=== PATIENT | female | born 1935 | race Caucasian/White ===

== ENCOUNTER 2019-07-23 11:10 | Emergency (ER) | payer OTHER ==
[~2019-07-23] VITALS: Ht 157.5 cm; Wt 56.7 kg
[2019-07-23 11:10] VITALS: BP_SYST 116
--- NOTE | 2019-07-23 11:10 | NUR ---
ASSISTED OUT OF CAR TO WHEELCHAIR, BROUGHT IMMEDIATELY BACK TO #2 AND TRIAGED. REPORT GIVEN TO NITIN
--- NOTE | 2019-07-23 11:11 | NUR ---
EKG DONE AND GIVEN TO DR MCKAY, ALL STAFF TO BEDSIDE.
--- NOTE | 2019-07-23 11:12 | NUR ---
ER Dr. Kennedy at bedside examining patient.
--- NOTE | 2019-07-23 11:13 | NUR ---
#20 and 18g gauge angiocath placed to LAC and RAC. Use of asceptic technique. Opsite placed over site. Blood return noted. Blood for lab drawn from site. Flushed with 10 cc of normal saline. No evidence of infiltration noted. Patient tolerated well.
--- NOTE | 2019-07-23 11:14 | NUR ---
EKG FAXED TO [facility]
[2019-07-23] MEDS ORDERED: NACL 0.9% 1,000 ML IV ONE (11:16)
--- NOTE | 2019-07-23 11:28 | NUR ---
DR MCKAY SPEAKING WITH DR OLIVA, ACCEPTED TO BE TRANSFERRED TO [facility] FOR HIGHER LEVEL OF CARE.
[2019-07-23] MEDS ORDERED: ASPIRIN 81 MG TAB.CHEW PO ONE ×2 (11:30)
[2019-07-23] MEDS ORDERED: MORPHINE 2 MG/ML INJ. SYRINGE IVP ONE (11:30)
[2019-07-23] MEDS ORDERED: NITROGLYCERIN 0.4 MG TAB.SUBL SL ONE ×2 (11:30→11:37)
--- NOTE | 2019-07-23 11:31 | NUR ---
911 CALLED BY INCREMENT MANAGER HECTOR
--- NOTE | 2019-07-23 11:34 | NUR ---
ER at bedside reassessing the pt patient and speaking with the pt's daughter.
--- NOTE | 2019-07-23 11:40 | NUR ---
[facility] paramedics at transferring pt to the [facility].
--- NOTE | 2019-07-23 11:46 | NUR ---
[facility] transferring pt to [facility]. Transfer consent obtained by the pt's daughter.
--- NOTE | 2019-07-23 11:48 | NUR ---
Patient to be transferred to [facility]. Is being transferred due to higher level of care. Receiving facility has accepting physician and available space. ER physician has signed transfer form. Patient or responsible republican has agreed to transfer and signed form. Patient belongings inventoried and will be sent with patient. Copy of nursing notes, lab reports, EKG, Physicians Orders and X-rays to be sent with patient. Report called to ED locum tenens hospitalist at receiving facility. Receiving physician is . [facility] ambulance service has been called for transfer.
[2019-07-23 11:49] LABS: BASOPHILS % (AUTO) 0.2 % (0.0-2.0); EOSINOPHILS % (AUTO) 0.1 % (0.0-4.0); HEMATOCRIT 43.5 % (36-48); HEMOGLOBIN 14.9 g/dL (12.0-16.0); LYMPHOCYTES # (AUTO) 1.1 K/uL (1.0-5.5); LYMPHOCYTES % (AUTO) 8.9 % (20.5-51.5); MEAN CORPUSCULAR HEMOGLOBIN 31 pg (27-31); MEAN CORPUSCULAR HGB CONC 34 % (32-36); MEAN CORPUSCULAR VOLUME 92 fL (79.0-98.0); MONOCYTES % (AUTO) 8.1 % (1.7-9.3); NEUTROPHILS # (AUTO) 10.3 K/uL (1.8-7.7); NEUTROPHILS % (AUTO) 82.7 % (40.0-70.0); PLATELET COUNT (AUTO) 235 K/uL (130-430); RED BLOOD CELL COUNT(AUTO) 4.75 MIL/uL (4.2-6.2); RED CELL DISTRIBUTION WIDTH 13.7 % (9.0-15.0); WHITE BLOOD COUNT (AUTO) 12.5 K/uL (4.8-10.8)
[2019-07-23 11:55] LABS: ANION GAP 17 (5-15); CALCIUM 9.2 mg/dL (8.4-11.0); CHLORIDE 100 mmol/L (98-107); CREATININE 1.22 mg/dL (0.55-1.30); GLUCOSE 130 mg/dL (70-99); POTASSIUM 3.7 mmol/L (3.5-5.1); SODIUM SERUM 139 mmol/L (136-145); UREA NITROGEN, BLOOD 19 mg/dL (8-21)
[2019-07-23 11:56] VITALS: BP_SYST 142
[2019-07-23 12:08] LABS: ALANINE AMINOTRANSFERASE 46 U/L (12-78); ALBUMIN 3.5 g/dL (3.4-4.8); ASPARTATE AMINOTRANSFERASE 390 U/L (10-37); TOTAL BILIRUBIN 0.8 mg/dL (0.0-1.0)
== END 2019-07-23 11:48 | disposition short-term general hospital (02) ==
LOC: SED 11:10
DX: I21.3 ST elevation (STEMI) myocardial infarction of unspecified site (principal); E07.9 Disorder of thyroid, unspecified; Z90.49 Acquired absence of other specified parts of digestive tract
CPT/HCPCS: 36415; 71045; 80053; 84484; 85025; 93005; 96374; 99285; J2270; J7030

== ENCOUNTER 2021-10-10 21:58 | Inpatient (IN) | payer OTHER, SELFPAY ==
[~2021-10-10] VITALS: Ht 154.9 cm; Wt 56.4 kg
[2021-10-10 22:01] VITALS: BP_SYST 134
[2021-10-10] MEDS ORDERED: fentaNYL CITRATE/PF 100 MCG/2 ML AMP IVP ONE (22:45)
[2021-10-10] MEDS ORDERED: IOHEXOL 350 mgI/mL, 150 ML INFUS..BTL IV ONE (23:22)
[2021-10-10 23:44] LABS: BASOPHILS # (AUTO) 0.1 K/uL (0.0-0.2); BASOPHILS % (AUTO) 1.4 % (0.0-2.0); EOSINOPHILS # (AUTO) 0.1 K/uL (0.0-0.4); EOSINOPHILS % (AUTO) 1.9 % (0.0-4.0); HEMOGLOBIN 11.2 g/dL (12.0-16.0); LYMPHOCYTES # (AUTO) 0.6 K/uL (1.0-5.5); LYMPHOCYTES % (AUTO) 8.9 % (20.5-51.5); MEAN CORPUSCULAR HEMOGLOBIN 30 pg (27-31); MEAN CORPUSCULAR HGB CONC 33 % (32-36); MEAN CORPUSCULAR VOLUME 90 fL (79.0-98.0); MONOCYTES # (AUTO) 0.5 K/uL (0.0-1.0); MONOCYTES % (AUTO) 7.3 % (1.7-9.3); NEUTROPHILS # (AUTO) 5.6 K/uL (1.8-7.7); NEUTROPHILS % (AUTO) 80.5 % (40.0-70.0); PLATELET COUNT (AUTO) 239 K/uL (130-430); RED BLOOD CELL COUNT(AUTO) 3.78 MIL/uL (4.2-6.2); RED CELL DISTRIBUTION WIDTH 15.9 % (9.0-15.0)
[2021-10-10 23:49] LABS: ANION GAP 12 (5-15); CALCIUM 8.9 mg/dL (8.4-11.0); CHLORIDE 96 mmol/L (98-107); CREATININE 1.17 mg/dL (0.55-1.30); GLUCOSE 142 mg/dL (70-99); POTASSIUM 3.3 mmol/L (3.5-5.1); SODIUM SERUM 134 mmol/L (136-145); UREA NITROGEN, BLOOD 40 mg/dL (8-21)
[2021-10-11] VITALS (7 sets, daily range): BP systolic 115–131
[2021-10-11 00:01] LABS: ALANINE AMINOTRANSFERASE 40 U/L (12-78); ASPARTATE AMINOTRANSFERASE 26 U/L (10-37); LIPASE 79 U/L (73-393); TOTAL BILIRUBIN 0.9 mg/dL (0.0-1.0)
[2021-10-11] MEDS ORDERED: HEPARIN 25,000 UNITS/D5W 250ML 250 ML IV ONE (00:45)
[2021-10-11] MEDS ORDERED: HEPARIN SODIUM,PORCINE 5,000 UNITS/ML VIAL IVP ONE (00:45)
[2021-10-11] MEDS ORDERED: FUROSEMIDE 20 MG/2 ML VIAL IVP ONE ×2 (00:45→09:45)
[2021-10-11] MEDS ORDERED: FUROSEMIDE 20 MG/2 ML VIAL ONE (00:56)
[2021-10-11 01:05] LABS: INR 1.1 (0.8-1.2); PROTHROMBIN TIME 11.6 SECS (9.5-12.5)
[2021-10-11] MEDS ORDERED: ASPIRIN 81 MG TAB.CHEW PO ONE (01:30)
[2021-10-11] MEDS ORDERED: ACETAMINOPHEN 325 MG TABLET PO PRN (01:45)
[2021-10-11] MEDS: ALBUTEROL SULFATE 0.083% 2.5 MG/3 ML VIAL.NEB INH PRN ×2 (07:12→18:41)
[2021-10-11] MEDS: ASPIRIN 325 MG TABLET PO SCH (08:48)
[2021-10-11 08:58] LABS: BASOPHILS % (AUTO) 0.5 % (0.0-2.0); EOSINOPHILS % (AUTO) 0.2 % (0.0-4.0); HEMOGLOBIN 11.9 g/dL (12.0-16.0); LYMPHOCYTES # (AUTO) 1.1 K/uL (1.0-5.5); LYMPHOCYTES % (AUTO) 13.3 % (20.5-51.5); MEAN CORPUSCULAR HEMOGLOBIN 30 pg (27-31); MEAN CORPUSCULAR HGB CONC 33 % (32-36); MEAN CORPUSCULAR VOLUME 91 fL (79.0-98.0); MONOCYTES # (AUTO) 0.6 K/uL (0.0-1.0); MONOCYTES % (AUTO) 6.6 % (1.7-9.3); NEUTROPHILS # (AUTO) 6.8 K/uL (1.8-7.7); NEUTROPHILS % (AUTO) 79.4 % (40.0-70.0); PLATELET COUNT (AUTO) 257 K/uL (130-430); RED BLOOD CELL COUNT(AUTO) 3.98 MIL/uL (4.2-6.2); RED CELL DISTRIBUTION WIDTH 15.6 % (9.0-15.0); WHITE BLOOD COUNT (AUTO) 8.5 K/uL (4.8-10.8)
[2021-10-11 09:20] LABS: ALANINE AMINOTRANSFERASE 43 U/L (12-78); ANION GAP 12 (5-15); ASPARTATE AMINOTRANSFERASE 39 U/L (10-37); CALCIUM 8.9 mg/dL (8.4-11.0); CHLORIDE 94 mmol/L (98-107); CREATININE 1.36 mg/dL (0.55-1.30); GLUCOSE 187 mg/dL (70-99); POTASSIUM 3.3 mmol/L (3.5-5.1); SODIUM SERUM 131 mmol/L (136-145); UREA NITROGEN, BLOOD 45 mg/dL (8-21)
[2021-10-11] MEDS ORDERED: CARVEDILOL 3.125 MG TABLET (COREG) PO ONE (09:45)
[2021-10-11] MEDS ORDERED: POTASSIUM CHLORIDE 20 MEQ TAB.PRT.SR PO ONE (09:45)
[2021-10-11] MEDS ORDERED: SACU1TAB4 PO (13:14)
[2021-10-11] MEDS ORDERED: CARV3.1246 PO (13:14)
[2021-10-11] MEDS ORDERED: TICA90TA PO (13:14)
[2021-10-11] MEDS ORDERED: LIP40 PO (13:14)
[2021-10-11] MEDS: NORMAL SALINE 5 ML DISP.SYRIN IVF SCH (22:12)
[2021-10-11] MEDS: POTASSIUM CHLORIDE 20 MEQ TAB.PRT.SR PO SCH (22:12)
[2021-10-11] MEDS: CARVEDILOL 3.125 MG TABLET (COREG) PO SCH (22:13)
[2021-10-11] MEDS: FUROSEMIDE 20 MG/2 ML VIAL IVP SCH (22:14)
[2021-10-12 00:20] VITALS: BP_SYST 102
[2021-10-12] MEDS: NORMAL SALINE 5 ML DISP.SYRIN IVF SCH (05:17)
[2021-10-12 06:24] LABS: BASOPHILS % (AUTO) 0.4 % (0.0-2.0); EOSINOPHILS % (AUTO) 0.3 % (0.0-4.0); HEMATOCRIT 31.1 % (36-48); HEMOGLOBIN 10.4 g/dL (12.0-16.0); LYMPHOCYTES # (AUTO) 1.3 K/uL (1.0-5.5); LYMPHOCYTES % (AUTO) 15.4 % (20.5-51.5); MEAN CORPUSCULAR HEMOGLOBIN 30 pg (27-31); MEAN CORPUSCULAR HGB CONC 33 % (32-36); MEAN CORPUSCULAR VOLUME 90 fL (79.0-98.0); MONOCYTES # (AUTO) 0.8 K/uL (0.0-1.0); MONOCYTES % (AUTO) 9.7 % (1.7-9.3); NEUTROPHILS # (AUTO) 6.1 K/uL (1.8-7.7); NEUTROPHILS % (AUTO) 74.2 % (40.0-70.0); PLATELET COUNT (AUTO) 204 K/uL (130-430); RED BLOOD CELL COUNT(AUTO) 3.44 MIL/uL (4.2-6.2); RED CELL DISTRIBUTION WIDTH 15.8 % (9.0-15.0); WHITE BLOOD COUNT (AUTO) 8.2 K/uL (4.8-10.8)
[2021-10-12 07:53] VITALS: BP_SYST 114
[2021-10-12] MEDS: FUROSEMIDE 20 MG/2 ML VIAL IVP SCH (08:13)
[2021-10-12] MEDS: POTASSIUM CHLORIDE 20 MEQ TAB.PRT.SR PO SCH (08:13)
[2021-10-12] MEDS: CARVEDILOL 3.125 MG TABLET (COREG) PO SCH (08:14)
[2021-10-12] MEDS: ASPIRIN 325 MG TABLET PO SCH (08:15)
[2021-10-12 08:26] LABS: ALANINE AMINOTRANSFERASE 37 U/L (12-78); ALBUMIN 2.7 g/dL (3.4-4.8); ANION GAP 10 (5-15); ASPARTATE AMINOTRANSFERASE 31 U/L (10-37); CALCIUM 8.6 mg/dL (8.4-11.0); CHLORIDE 94 mmol/L (98-107); CREATININE 1.45 mg/dL (0.55-1.30); GLUCOSE 117 mg/dL (70-99); POTASSIUM 3.7 mmol/L (3.5-5.1); SODIUM SERUM 131 mmol/L (136-145); TOTAL BILIRUBIN 0.6 mg/dL (0.0-1.0); UREA NITROGEN, BLOOD 50 mg/dL (8-21)
[2021-10-12] MEDS ORDERED: LOSARTAN POTASSIUM 25 MG TABLET PO SCH (09:00)
[2021-10-12 12:00] VITALS: BP_SYST 134
[2021-10-12 13:48] VITALS: BP_SYST 114
[2021-10-12 16:11] VITALS: BP_SYST 119
== END 2021-10-12 16:45 | disposition hospice, home (50) | DRG 280 ==
LOC: SED 21:58 → STU 10-11 01:44
PROVIDERS: ADMIT Internal Medicine Hospice and Palliative Medicine; ATTEND Internal Medicine Hospice and Palliative Medicine
DX: I11.0 Hypertensive heart disease with heart failure (principal); I21.A1 Myocardial infarction type 2; I50.23 Acute on chronic systolic (congestive) heart failure; I42.0 Dilated cardiomyopathy; E78.00 Pure hypercholesterolemia, unspecified; R53.81 Other malaise; Z20.822 Contact with and (suspected) exposure to COVID-19; F17.200 Nicotine dependence, unspecified, uncomplicated; I73.9 Peripheral vascular disease, unspecified; J44.9 Chronic obstructive pulmonary disease, unspecified; I25.2 Old myocardial infarction
CPT/HCPCS: 36415; 71045; 71275; 72191; 74175; 76376; 80053; 83605; 83690; 83880; 84484; 85025; 85610-TC; 85730-TC; 87040-TC; 93005; 93306; 94640; 94760; 96365; 96375; 96376; 99291; G0378; J1644; J1940; J3010; J7613; Q9967